=== PATIENT | male | born 1995 | race Caucasian/White ===

== ENCOUNTER 2019-02-14 07:56 | Emergency (ER) | payer SELFPAY ==
[~2019-02-14] VITALS: Ht 182.9 cm; Wt 97.7 kg
[2019-02-14 07:59] VITALS: BP 164/86; Ht 182.9 cm; Wt 97.7 kg
== END 2019-02-14 08:55 | disposition home or self-care (01) ==
LOC: ED 07:56
DX: S00.531A Contusion of lip, initial encounter (principal); W22.8XXA Striking against or struck by other objects, initial encounter; Y93.89 Activity, other specified; Y92.89 Other specified places as the place of occurrence of the external cause; Y99.8 Other external cause status